=== PATIENT | male | born 1940 | race African-American/Black ===

== ENCOUNTER 2016-03-16 08:09 | Outpatient (CLI) | payer MEDICARE, MEDICAID | END 2016-03-16 08:10 | disposition home or self-care (01) | LOC: NAV LABSP 08:09 | PROVIDERS: ATTEND Family Medicine | DX: R56.9 Unspecified convulsions (principal) | CPT/HCPCS: 36415; 80177 ==

== ENCOUNTER 2016-03-29 13:26 | Outpatient (CLI) | payer MEDICARE, OTHER | END 2016-03-29 13:27 | disposition home or self-care (01) | LOC: NAV LABSP 13:26 | PROVIDERS: ATTEND Family Medicine | DX: R11.2 Nausea with vomiting, unspecified (principal); R50.9 Fever, unspecified ==

== ENCOUNTER 2016-04-19 07:22 | Outpatient (CLI) | payer MEDICARE, OTHER | END 2016-04-19 07:23 | disposition home or self-care (01) | LOC: NAV LABSP 07:22 | PROVIDERS: ATTEND Family Medicine | DX: R56.9 Unspecified convulsions (principal) | CPT/HCPCS: 36415; 80177 ==

== ENCOUNTER 2016-05-23 08:35 | Outpatient (CLI) | payer MEDICARE, MEDICAID ==
[2016-05-23 09:29] LABS: #Basophils 0.1 thou/uL (0.0-0.2); #Eosinphils 0.2 thou/uL (0.0-0.7); #Lymphocytes 1.8 thou/uL (1.20-3.40); #Monocytes 0.4 thou/uL (0.11-0.59); #Neutrophils 2.9 thou/uL (1.40-6.50); %Basophils 1.2 % (0.0-1.0); %Eosinophils 3.4 % (0.0-10.0); %Lymphocytes 33.5 % (21.0-51.0); %Monocytes 7.4 % (0.0-10.0); %Neutrophils 54.5 % (42.0-75.0); Hemoglobin 14.1 g/dL (14.0-18.0); Mean Corpuscular HGB CONC 31.9 g/dL (32.0-36.0); Mean Corpuscular Hemoglobin 29.4 pg (27.0-31.0); Mean Corpuscular Volume 92.3 fl (80.0-94.0); Mean Platelet Volume 6.8 fL (7.4-10.4); Platelet Count 270 thou/uL (130-400); RBC Distribution Width 13.7 % (11.5-14.5); White Blood Cell (WBC) Count 5.4 thou/uL (4.8-10.8)
[2016-05-23 09:36] LABS: ALT (SGPT) 9 U/L (0-55); AST (SGOT) 12 U/L (5-34); Albumin 3.2 g/dL (3.4-4.8); Alkaline Phosphatase 123 U/L (40-150); Anion Gap 13 mmol/L (10-20); BUN (Urea Nitrogen) 7 mg/dL (8.4-25.7); Bilirubin, Total 0.4 mg/dL (0.2-1.2); Calc. Creatinine Clearance 0 mL/min (70-130); Carbon Dioxide 26 mmol/L (23-31); Cardiac Risk 2.6 (Less than 4.5); Chloride 104 mmol/L (98-107); Cholesterol 118 mg/dL (< 200 Desired); Estimated GFR-MDRD Greater than 90; Glucose 91 mg/dL (83-110); HDL Cholesterol 46 mg/dL (>60 Neg Risk); LDL Cholesterol, Calculated 65 mg/dL; Potassium 4.1 mmol/L (3.5-5.1); Protein, Total 7.2 g/dL (5.8-8.1); Sodium 139 mmol/L (136-145); Triglycerides 37 mg/dL (Less than 150)
[2016-05-23 10:02] LABS: PSA-Asymptomatic (SCREENING) 2.33 ng/mL (0-4.0); Thyroid Stimulating Hormone 2.4023 uIU/mL (0.35-4.94)
== END 2016-05-23 08:36 | disposition home or self-care (01) ==
LOC: NAV LABSP 08:35
PROVIDERS: ATTEND Family Medicine
DX: Z12.5 Encounter for screening for malignant neoplasm of prostate (principal); R56.9 Unspecified convulsions; I10 Essential (primary) hypertension
CPT/HCPCS: 36415; 80053; 80061; 80177; 84443; 85025; G0103

== ENCOUNTER 2016-06-23 07:14 | Outpatient (CLI) | payer MEDICARE, MEDICAID | END 2016-06-23 07:15 | disposition home or self-care (01) | LOC: NAV LABSP 07:14 | PROVIDERS: ATTEND Family Medicine | DX: R56.9 Unspecified convulsions (principal) | CPT/HCPCS: 36415; 80177 ==

== ENCOUNTER 2016-07-22 07:05 | Outpatient (CLI) | payer MEDICARE, OTHER | END 2016-07-22 07:06 | disposition home or self-care (01) | LOC: NAV LABSP 07:05 | PROVIDERS: ATTEND Family Medicine | DX: R56.9 Unspecified convulsions (principal) | CPT/HCPCS: 80177 ==

== ENCOUNTER 2016-08-17 08:22 | Outpatient (CLI) | payer MEDICARE, OTHER | END 2016-08-17 08:23 | disposition home or self-care (01) | LOC: NAV LABSP 08:22 | PROVIDERS: ATTEND Family Medicine | DX: R56.9 Unspecified convulsions (principal) | CPT/HCPCS: 36415; 80177 ==

== ENCOUNTER 2016-09-26 07:49 | Outpatient (CLI) | payer MEDICARE, OTHER | END 2016-09-26 07:50 | disposition home or self-care (01) | LOC: NAV LABSP 07:49 | PROVIDERS: ATTEND Family Medicine | DX: R56.9 Unspecified convulsions (principal) | CPT/HCPCS: 36415; 80177 ==

== ENCOUNTER 2016-10-20 07:03 | Outpatient (CLI) | payer MEDICARE, OTHER | END 2016-10-20 07:04 | disposition home or self-care (01) | LOC: NAV LABSP 07:03 | PROVIDERS: ATTEND Family Medicine | DX: R56.9 Unspecified convulsions (principal) | CPT/HCPCS: 36415; 80177 ==

== ENCOUNTER 2016-11-18 07:10 | Outpatient (CLI) | payer MEDICARE, MEDICAID ==
[2016-11-18 08:03] LABS: ALT (SGPT) 9 U/L (8-55); AST (SGOT) 10 U/L (5-34); Albumin 3.3 g/dL (3.4-4.8); Alkaline Phosphatase 109 U/L (40-150); Anion Gap 10 mmol/L (10-20); BUN (Urea Nitrogen) 10 mg/dL (8.4-25.7); Bilirubin, Total 0.3 mg/dL (0.2-1.2); Calc. Creatinine Clearance 0 mL/min (70-130); Calcium 9.5 mg/dL (7.8-10.44); Carbon Dioxide 29 mmol/L (23-31); Cardiac Risk 2.5 (Less than 4.5); Chloride 105 mmol/L (98-107); Cholesterol 132 mg/dl (< 200 Desired); Estimated GFR-MDRD Greater than 90; Globulin 3.8 g/dL (2.4-3.5); Glucose 95 mg/dL (83-110); HDL Cholesterol 52 mg/dL (>60 Neg Risk); LDL Cholesterol, Calculated 70 mg/dL; Potassium 4.1 mmol/L (3.5-5.1); Protein, Total 7.1 g/dL (5.8-8.1); Sodium 140 mmol/L (136-145); Triglycerides 50 mg/dL (Less than 150)
== END 2016-11-18 07:11 | disposition home or self-care (01) ==
LOC: NAV LABSP 07:10
PROVIDERS: ATTEND Family Medicine
DX: R56.9 Unspecified convulsions (principal); I10 Essential (primary) hypertension
CPT/HCPCS: 36415; 80053; 80061; 80177; 85025

== ENCOUNTER 2016-11-21 07:55 | Outpatient (CLI) | payer MEDICARE, OTHER ==
[2016-11-21 10:03] LABS: Band 1 % (5-11); Eosinophils 2 % (0-10); Hemoglobin 14.1 g/dL (14.0-18.0); Lymphocytes 37 % (21-51); MDiff Complete? YES; Mean Corpuscular HGB CONC 31.1 g/dL (32.0-36.0); Mean Corpuscular Hemoglobin 27.5 pg (27.0-31.0); Mean Corpuscular Volume 88.4 fl (80.0-94.0); Mean Platelet Volume 7.1 fL (7.4-10.4); Monocytes 6 % (0-10); Neutrophil 54 % (42-75); PLT Morphology Comment Appears Adequate; Platelet Count 283 thou/uL (130-400); RBC Distribution Width 15.2 % (11.5-14.5); Red Blood Cell (RBC) Count 5.14 mill/uL (4.70-6.10); White Blood Cell (WBC) Count 6.1 thou/uL (4.8-10.8)
== END 2016-11-21 07:56 | disposition home or self-care (01) ==
LOC: NAV LAB 07:55
PROVIDERS: ATTEND Family Medicine
DX: I10 Essential (primary) hypertension (principal); R56.9 Unspecified convulsions
CPT/HCPCS: 36415; 85025

== ENCOUNTER 2018-10-30 17:39 | Outpatient (CLI) | payer MEDICARE, MEDICAID | END 2018-10-30 17:40 | disposition home or self-care (01) | LOC: NAV LAB 17:39 | PROVIDERS: ATTEND Family Medicine | DX: R56.9 Unspecified convulsions (principal) | CPT/HCPCS: 80177 ==

== ENCOUNTER 2020-06-19 08:49 | Outpatient (CLI) | payer MEDICARE, OTHER ==
[2020-06-19] MEDS ORDERED: Iopamidol 370 76% 100 ML VIAL ONE (09:00)
[2020-06-19 09:21] LABS: Calc. Creatinine Clearance 0 mL/min (70-130)
== END 2020-06-19 08:50 | disposition home or self-care (01) ==
LOC: NAV CT 08:49
PROVIDERS: ATTEND Family Medicine
DX: R56.9 Unspecified convulsions (principal)
CPT/HCPCS: 74160; 82565; Q9967